=== PATIENT | male | born 1975 | race Two or more races ===

== ENCOUNTER 2021-10-09 14:27 | Emergency (ER) | payer SELFPAY ==
[~2021-10-09] VITALS: Ht 162.6 cm; Wt 96.4 kg
[2021-10-09 14:40] VITALS: BP 106/66
[2021-10-09] MEDS ORDERED: IBUP800T27 PO (16:24)
[2021-10-09] MEDS ORDERED: IBUPROFEN 800 MG TAB PO ONE (16:30)
== END 2021-10-09 16:30 | disposition home or self-care (01) ==
LOC: ER 14:32
DX: S52.532A Colles' fracture of left radius, initial encounter for closed fracture (principal); W01.0XXA Fall on same level from slipping, tripping and stumbling without subsequent striking against object, initial encounter; Y93.89 Activity, other specified; Y92.89 Other specified places as the place of occurrence of the external cause; Y99.8 Other external cause status
CPT/HCPCS: 29125; 73110